=== PATIENT | male | born 1960 | race Native Hawaiian/Other Pacific Islander ===

== ENCOUNTER 2019-05-15 19:50 | Emergency (ER) | payer OTHER ==
[2019-05-15 19:57] VITALS: BP 164/103
--- NOTE | 2019-05-15 20:39 | Event Note ---
ED Screening Note ED Screening Note: Mr. Cook is a greenlandic speaking male with RUQ epigastric pain. This initial assessment/diagnostic orders/clinical plan/treatment(s) is/are subject to change based on patients health status, clinical progression and re- assessment by fellow clinical providers in the ED. Further treatment and workup at subsequent clinical providers discretion. Patient/guardian urged not to elope from the ED as their condition may be serious if not clinically assessed and managed. Initial orders include: labs
[2019-05-15 21:24] LABS: Basophils # (Auto) 0.1 K/mm3 (0.0-0.1); Basophils % (Auto) 0.6 % (0.0-1.8); Eosinophils # (Auto) 0.1 K/mm3 (0.0-0.4); Eosinophils % (Auto) 0.7 % (0.0-4.3); Hematocrit 44.9 % (35.5-45.6); Hemoglobin 15.7 gm/dl (11.8-15.2); Lymphocytes # (Auto) 1.6 K/mm3 (1.2-5.4); Mean Corpuscular HGB Conc 35 % (32-34); Mean Corpuscular Volume 90 fl (84-94); Monocytes # (Auto) 0.7 K/mm3 (0.0-0.8); Monocytes % (Auto) 6.2 % (0.0-7.3); Platelet Count 202 K/mm3 (140-440); Red Blood Count 4.97 M/mm3 (3.65-5.03); Red Cell Distribution Width 13.3 % (13.2-15.2)
[2019-05-15] MEDS ORDERED: MORPHINE 4 MG/1 ML INJ IV ONE (21:46)
[2019-05-15] MEDS ORDERED: ONDANSETRON 4 MG/2 ML INJ IV ONE (21:46)
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
[2019-05-15 21:51] LABS: Alanine Aminotransferase 18 units/L (7-56); Albumin 4.8 g/dL (3.9-5); BUN/Creatinine Ratio 22; Blood Urea Nitrogen 28 mg/dL (9-20); Calcium 9.8 mg/dL (8.4-10.2); Hemolysis Index 7
[2019-05-15 22:01] LABS: Bilirubin,Direct < 0.2 mg/dL (0-0.2)
--- NOTE | 2019-05-15 22:13 | XRay Report ---
Left knee 3 views INDICATION: Left knee pain following injury IMPRESSION: No fracture or subluxation of the left knee is identified. No knee effusion. Signer Name: Diony Khoury MD Signed: 05/15/2019 10:09 PM Workstation Name: [id number]
--- NOTE | 2019-05-15 23:55 | Cat Scan Report ---
CT of the abdomen and pelvis with contrast INDICATION: Upper quadrant pain COMPARISON: None FINDINGS: Lung bases are clear. Septated hepatic cyst is seen. There is no hepatic laceration. No hem operitoneum in the upper abdomen. The spleen, pancreas, adrenal glands and kidneys show no abnormalit ies. No definite gallbladder or biliary tree abnormality. No adenopathy is seen. No vascular calcific ation or aneurysm. CT of the pelvis shows normal appendix. No bowel obstruction or evidence of bowel injury. There is mo derate prostatic enlargement. No pelvic or inguinal adenopathy. No diverticulitis. No fracture seen. IMPRESSION: Negative study. Automated exposure control was utilized to diminish radiation dose. Signer Name: Pavel Boudreaux MD Signed: 05/15/2019 11:51 PM Workstation Name: [id number]
== END 2019-05-16 01:04 | disposition home or self-care (01) ==
LOC: ED 19:50
DX: S30.1XXA Contusion of abdominal wall, initial encounter (principal); S80.02XA Contusion of left knee, initial encounter; V49.49XA Driver injured in collision with other motor vehicles in traffic accident, initial encounter; Y93.89 Activity, other specified; Y92.488 Other paved roadways as the place of occurrence of the external cause; Y99.8 Other external cause status
CPT/HCPCS: 36415; 73562; 74177; 80048; 80076; 83690; 85025; 96374; 96375; 99285; J2270; J2405; Q9967